=== PATIENT | female | born 2000 | race African-American/Black ===

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

== ENCOUNTER 2020-03-12 15:18 | Outpatient (CLI) | payer OTHER ==
[2020-03-12 17:04] LABS: #Eosinphils 0.1 thou/uL (0.0-0.7); #Lymphocytes 2.3 thou/uL (1.20-3.40); #Monocytes 0.8 thou/uL (0.11-0.59); #Neutrophils 7.5 thou/uL (1.40-6.50); %Basophils 0.3 % (0.0-1.0); %Eosinophils 1.2 % (0.0-10.0); %Lymphocytes 21.1 % (21.0-51.0); %Monocytes 7.3 % (0.0-10.0); %Neutrophils 70.1 % (42.0-75.0); Hemoglobin 12.1 g/dL (12.0-16.0); Mean Corpuscular HGB CONC 31.4 g/dL (32.0-36.0); Mean Corpuscular Hemoglobin 27.6 pg (27.0-31.0); Mean Corpuscular Volume 87.9 fL (78.0-98.0); Mean Platelet Volume 7.5 fL (7.4-10.4); Platelet Count 327 thou/uL (130-400); RBC Distribution Width 12.9 % (11.5-14.5); White Blood Cell (WBC) Count 10.8 thou/uL (4.8-10.8)
[2020-03-12 17:08] LABS: BHCG - Serum Negative (NEGATIVE); Pregs Control Background? CLEAR/WHITE (CLR/WHITE); Pregs Control Bar Appear? YES (CONTROL BAR)
[2020-03-13 11:07] LABS: SARS-CoV-2 MS2 Positive; SARS-CoV-2 N Gene Negative; SARS-CoV-2 S Gene Negative; SARS-CoV-2 orf1ab Negative
== END 2020-03-12 15:19 | disposition home or self-care (01) ==
LOC: LABBT 15:18
PROVIDERS: ATTEND Surgery
DX: Z01.812 Encounter for preprocedural laboratory examination (principal); Z11.59 Encounter for screening for other viral diseases; L05.91 Pilonidal cyst without abscess
CPT/HCPCS: 84703; 85025; 87635; U0003

== ENCOUNTER 2020-03-13 07:50 | Day surgery (SDC) | payer OTHER ==
[2020-03-12 15:49] VITALS: BMI 35.4
[2020-03-13] MEDS ORDERED: Hydrocodone-Acetamin 15 ML UDCUP ONE (08:32)
[2020-03-13] MEDS ORDERED: Midazolam HCl 2 mg/2 ml Vial ONE (09:29)
[2020-03-13] MEDS ORDERED: Fentanyl 100 MCG/2 ML VIAL ONE (09:29)
[2020-03-13] MEDS ORDERED: Lidocaine 1% w/Epinephrine 1:100K 20 ML VIAL ONE (09:31)
[2020-03-13] MEDS ORDERED: Bupivacaine 0.25% HCL 30 ML VIAL ONE (09:31)
--- NOTE | 2020-03-13 10:56 | OP ---
DATE OF PROCEDURE: 03/13/2020 PREOPERATIVE DIAGNOSIS: Pilonidal cyst with abscess. PROCEDURE PERFORMED: Pilonidal cystectomy. INDICATIONS: A 20-year-old female, who developed an infected pilonidal cyst, had a limited I and D, continued to have pain and swelling. FINDINGS: A 3 x 2 cm cyst at the upper aspect of the gluteal cleft, oriented to the right. DESCRIPTION OF PROCEDURE: After informed consent was obtained, the patient was taken to the operating room, given general endotracheal anesthesia. She was placed in a prone jessika-knife position. Buttock cheeks were spread with tape. The area was prepped and draped in usual fashion. Local anesthesia was infiltrated subcutaneously and deep. An elliptical incision was performed to excise the cystic cavity. The hemostasis was achieved utilizing electrocautery. The skin was sutured to the base with interrupted 3-0 chromic sutures to marsupialize it. It was irrigated, irrigation fluid removed. Dressing was placed. The patient tolerated the procedure well, transferred to Recovery in good condition. Job ID: [id number]
[2020-03-13] MEDS ORDERED: HYDROcodone/Acetaminophen 5/325 mg Tablet ONE (11:42)
[2020-03-13] MEDS ORDERED: Dexamethasone 20 MG/5 ML VIAL ONE (14:30)
[2020-03-13] MEDS ORDERED: Rocuronium Bromide 10 MG/ML (10ML VIAL) ONE (14:30)
[2020-03-13] MEDS ORDERED: PROPOFOL 200 MG/20 ML VIAL ONE (14:30)
[2020-03-13] MEDS ORDERED: Succinylcholine Chloride 20 MG/ML 10 ml SYRINGE FS ONE (14:30)
[2020-03-13] MEDS ORDERED: Lidocaine 1% PF 5 ML VIAL ONE (14:30)
[2020-03-13] MEDS ORDERED: Ketorolac Tromethamine 30 MG/ML VIAL ONE (14:30)
[2020-03-13] MEDS ORDERED: Ondansetron PF 4 MG/2 ML Vial ONE (14:30)
== END 2020-03-13 12:45 | disposition home or self-care (01) ==
LOC: SDC 07:50
PROVIDERS: ATTEND Surgery
PROC: 0HB8XZZ Excision of Buttock Skin, External Approach (ICD-10-PCS; principal; 2020-03-13)
DX: L05.01 Pilonidal cyst with abscess (principal)
CPT/HCPCS: J0694; J1100; J1885; J2001; J2250; J2405; J2704; J3010; S0020